=== PATIENT | male | born 2000 | race Caucasian/White ===

== ENCOUNTER 2025-02-08 16:05 | Outpatient (AMB) | payer BC, SELFPAY ==
--- NOTE | 2025-02-08 16:06 | MHC.PC.OV ---
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 Laboratory Chemical Assistant Required: No Accompanied by: Self / Same As Patient Allergies No Known Allergies Allergy (Verified 02/08/25 16:07) Tobacco use date assessed: 02/08/25 Dental Screening Dental Screen Date: 02/08/25 Did you have a dental visit in the last 12 months?: No Did you have a dental problem in the last 6 months where you did not have access to dental care?: No Was dental information given to patient?: No HPI HPI Comments History of Present Illness Details History of Present Illness The patient is a 24-year-old male presenting for a wellness examination and establishment of care with a new physician. He has no complaints at this encounter Review of Systems - General: Denies any current health concerns, reports feeling healthy - Respiratory: Denies smoking or drug use - Gastrointestinal: Reports normal bowel movements, denies abdominal pain - Genitourinary: Reports being sexually active 10-point ROS reviewed and negative except as noted in HPI Past Medical History Health Maintenance - Screening for sexually transmitted infections including chlamydia, gonorrhea, syphilis, HIV, Hepatitis B, and Hepatitis C was discussed. - Comprehensive metabolic panel including liver and kidney function tests, vitamin D, B12, and hemoglobin A1c was planned. - Lipid panel for cholesterol and triglycerides was planned. Physical Exam General: Well-appearing, in no acute distress. Vital signs: Within normal limits. HEENT: Normocephalic, atraumatic. PERRLA, EOMI. Conjunctiva clear, sclera anicteric. Oropharynx clear, mucous membranes moist. TMs intact bilaterally. Ears look good. Neck: Supple, no lymphadenopathy, no thyromegaly, no JVD or carotid bruits. Cardiovascular: RRR, normal S1/S2, no murmurs, rubs, or gallops. Peripheral pulses 2+ and symmetric. No edema. Respiratory: Lungs clear to auscultation bilaterally, no wheezes, rales, or rhonchi. Normal effort. Abdomen: Soft, non-tender, non-distended. Normoactive bowel sounds. No hepatosplenomegaly, no masses. No abdominal pain. MSK: Full range of motion, no joint swelling or deformity. Normal gait. Skin: Warm, dry, intact. No rashes, lesions, or pallor. Nails checked and appear normal. Neuro: Alert and oriented x3. Cranial nerves II-XII intact. Strength 5/5 throughout. Sensation intact. Reflexes 2+ symmetric. Normal coordination and gait. Psych: Appropriate mood and affect. Normal judgment and insight. Plan 1. Preventative Care: Screening for sexually transmitted infections to include HIV hep B hep C we will get a CBC CMP lipid A1c Discussion Notes During the visit, I discussed with the patient the importance of preventative care, including screening for sexually transmitted infections and conducting a comprehensive metabolic panel and lipid panel. We agreed to follow up once the lab results are available. Patient was informed and verbally consented to the use of an ambient scribe for clinic note documentation during this visit. Patient Instructions - Return for blood work tomorrow as the lab is currently closed. - Follow up in one to two weeks to discuss lab results. [facility] Family History (Updated 02/08/25 @ 16:13 by Kiara Lerner MA) Father No problems noted. Mother Thyroid disease Social History (Updated 02/08/25 @ 16:13 by Kiara Lerner MA) Housing: Apartment Alcohol intake: current Alcohol intake frequency: does not drink Patient Tobacco Use Status: Never used Tobacco service: No Current occupational status: employed Cognitive needs: No Hearing needs: No Vision needs: No Questionnaire PHQ-9 Over the last 2 weeks, how often have you been bothered by any of the following problems? 1. Little interest or pleasure in doing things: not at all 2. Feeling down, depressed, or hopeless: not at all 3. Trouble falling or staying asleep, or sleeping too much: not at all 4. Feeling tired or having little energy: not at all 5. Poor appetite or overeating: several days 6. Feeling bad about yourself - or that you are a failure or have let yourself or your family down: not at all 7. Trouble concentrating on things, such as reading the newspaper or watching television: not at all 8. Moving or speaking so slowly that other people could have noticed. Or the opposite - being so fidgety or restless that you have been moving around a lot more than usual: not at all 9. Thoughts that you would be better off or of hurting yourself in some way: not at all Total score: 1 Source: Developed by Drs. Naga Carrillo, Mckayla Kraus, Brent Hernandez and colleagues, with an educational abhi from [employer]. Thrive Questionnaire Date Thrive assessed: 02/07/25 I am a: Patient What is your living situation today?: I have a steady place to live Within the past 12 months, did the food you bought not last and you didn't have the money to get more?: Never true Within the past 12 months, did you worry whether your food would run out before you got money to buy more?: Never true Do you have trouble paying for medicines?: No Do you have trouble getting transportation to medical appointments?: No Do you have trouble paying your heating and electricity bill?: No Do you have trouble taking care of your child, family member or friend?: No Do you have trouble with day-to-day activities such as bathing, preparing meals, shopping, managing finances, etc.?: No Are you currently unemployed and looking for a job?: No Are you interested in more education?: No Please select the resources that you would like help with: None Currently or been in a relationship where the following occur: No concerns reported THRIVE Score: 0 AUDIT C Alcohol Use Questionnaire (AUDIT-C) 1. How often do you have a drink containing alcohol?: Never 3. How often do you have six or more drinks on one occasion?: Never Total Score: 0 LIZZIE-7 AMB Questionnaire LIZZIE-7 Date LIZZIE - 7 assessed: 02/08/25 Feeling nervous, anxious, or on edge: 0 = Not at all Not being able to stop or control worryin = Not at all Worrying too much about different things: 0 = Not at all Trouble relaxin = Not at all Being so restless that it is hard to sit still: 0 = Not at all Becoming easily annoyed or irritable: 0 = Not at all Feeling afraid as if something awful might happen: 0 = Not at all Total LIZZIE-7 score (0-4 normal; 5-9 mild; 10-14 moderate; 15-21 severe): 0 Source: Developed by Drs. Naga Carrillo, Mckayla Kraus, Brent Hernandez and colleagues, with an educational abhi from [employer]. Physical exam (Primary Care) Vital Signs: Last Vital Signs Temp 98.4 F 02/08/25 16:09 Pulse 79 02/08/25 16:09 Resp 16 02/08/25 16:09 BP 96/68 02/08/25 16:09 Pulse Ox 96 02/08/25 16:09 Oxygen Delivery Method Room Air 02/08/25 16:09 BMI result Body Mass Index 27.8 Tobacco/Smoking Status: Tobacco use Status Tobacco use date assessed 02/08/25 02/08/25 16:16 Patient Tobacco Use Status Never used Tobacco 02/08/25 16:16 PHQ-9: PHQ-9 Score PHQ-9: Total score 1 02/08/25 16:16 Thrive Assessment: Date of Thrive Assessment Date Thrive assessed 02/07/25 02/08/25 16:16 Currently or been in a relationship where the following occur: No concerns reported Coding Level of Care Code New Pt Level 3 (43328) Diagnoses Encounter to establish care Z76.89 Encounter for screening, unspecified Z13.9 Counseling, unspecified Z71.9 Screening for hypertension Z13.6 Screening for diabetes mellitus Z13.1 Screening for lipoid disorders Z13.220 Screening for depression Z13.31 Routine screening for STI (sexually transmitted infection) Z11.3 Screening for HIV (human immunodeficiency virus) Z11.4 Assessment & Plan Assessment & Plan (1) Encounter to establish care: Code(s): Z76.89 - Persons encountering health services in other specified circumstances (2) Encounter for screening, unspecified: Code(s): Z13.9 - Encounter for screening, unspecified (3) Counseling, unspecified: Code(s): Z71.9 - Counseling, unspecified (4) Screening for hypertension: Code(s): Z13.6 - Encounter for screening for cardiovascular disorders (5) Screening for diabetes mellitus: Code(s): Z13.1 - Encounter for screening for diabetes mellitus (6) Screening for lipoid disorders: Code(s): Z13.220 - Encounter for screening for lipoid disorders (7) Screening for depression: Code(s): Z13.31 - Encounter for screening for depression (8) Routine screening for STI (sexually transmitted infection): Code(s): Z11.3 - Encounter for screening for infections with a predominantly sexual mode of transmission (9) Screening for HIV (human immunodeficiency virus): Code(s): Z11.4 - Encounter for screening for human immunodeficiency virus [HIV] Plan Orders: Orders Complete Blood Count Auto Diff Today Z13.9 - Encounter for screening, unspecified Hepatitis B Surface Antigen Today Z13.9 - Encounter for screening, unspecified Syphilis Screen Today Z13.9 - Encounter for screening, unspecified UA CC w/rflx Micro + Cult Today Z13.9 - Encounter for screening, unspecified Vitamin B12 and Folate Today Z13.9 - Encounter for screening, unspecified Comprehensive Met. Panel Today Z13.9 - Encounter for screening, unspecified Hemoglobin A1c Today Z13.9 - Encounter for screening, unspecified Hepatitis B Surface Antibody Today Z13.9 - Encounter for screening, unspecified Hepatitis C Antibody Today Z13.9 - Encounter for screening, unspecified HIV Ab/Ag Today Z13.9 - Encounter for screening, unspecified Lipid Panel Today Z13.9 - Encounter for screening, unspecified Vitamin D 1,25 dihydroxy Today Z13.9 - Encounter for screening, unspecified Chlamydia Species Ab Panel Today Z13.9 - Encounter for screening, unspecified CT NG by PCR Urine Today Z13.9 - Encounter for screening, unspecified Medications: New ibuprofen 600 mg PO Q8H PRN 30 tabs 0RF pain
[2025-02-08 16:09] VITALS: BP 96/68; PULSE 79; RESP 16; TEMP 36.9; O2SAT 96; BMI 27.8
--- OUTSIDE RECORDS SUMMARY | 2025-02-08 19:52 | XMS_ITS | Encounter Summary ---
Author Organization [facility] Address [address] [place] [address] Phone Care Team Providers Care Laundry Washer Name Role Phone Rhett Portillo MD Primary Care Provider Encounter Details Date Type Department Care Team (Late st Contact Info) Description 03/22/2014 Documentation [facility] [place] Medicine [address] [place] [address] Family Medicine, Physician [address] [place], [place] [phone] Social History Tobacco Use Types Packs/Day Years Used Date Smoking Tobacco: Never Assessed Sex and Gender Information Value Date Recorded Sex Assigned at Male 07/26/2019 1:42 PM EDT Legal Sex Male 5:15 PM EDT Gender Identity Male 07/26/2019 1:42 PM EDT Sexual Orientation Straight 07/26/2019 1: 42 PM EDT documented as of this encounter Plan of Treatment Not on file documented as of this encounter Visit Diagnoses Not on filedocumented in this encounter Care Teams Laundry Washer Relationship Specialty Start Date End Date Rhett Portillo MD [address] [facility] [place] [address] PCP - General Pediatrics 05/25/19 05/05/23 documented as of this encounter
--- OUTSIDE RECORDS SUMMARY | 2025-02-08 19:52 | XMS_ITS | Encounter Summary ---
Author Organization [facility] Address [address] [place] [address] Phone Care Team Providers Care Painter Structural Steel Name Role Phone Rhett Portillo MD Primary Care Provider [phone] Encounter Details Date Type Department Care Team (Late st Contact Info) Description 04/23/2016 [place] [facility] [place] [address] [place] [address] Family Medicine, Physician [address] [place], [place] [phone] Social History Tobacco Use Types Packs/Day Years Used Date Smoking Tobacco: Never Comments:Never smoker Sex and Gender Information Value Date Recorded Sex Assigned at Male 07/26/2019 1:42 PM EDT Legal Sex Male 5:15 PM EDT Gender Identity Male 07/26/2019 1:42 PM EDT Sexual Orientation Straight 07/26/2019 1: 42 PM EDT documented as of this encounter Plan of Treatment Not on file documented as of this encounter Visit Diagnoses Not on filedocumented in this encounter Care Teams Painter Structural Steel Relationship Specialty Start Date End Date Rhett Portillo MD [address] [place] [address] [place] [address] PCP - General Pediatrics 05/25/19 05/05/23 documented as of this encounter
--- OUTSIDE RECORDS SUMMARY | 2025-02-08 19:52 | XMS_ITS | Encounter Summary ---
Author Organization [facility] Address [address] [place] [address] Phone Care Team Providers Care Manager Oracle Name Role Phone Rhett Portillo MD Primary Care Provider [phone] Encounter Details Date Type Department Care Team (Late st Contact Info) Description 04/30/2014 Documentation [facility] [place] Family Medicine [address] [place] [address] Family Medicine, Physician [address] [place], [place] [phone] Social History Tobacco Use Types Packs/Day Years [...] on filedocumented in this encounter Care Teams Manager Oracle Relationship Specialty Start Date End Date Rhett Portillo MD [address] [facility] [place] [address] PCP - General Pediatrics 05/25/19 05/05/23 documented as of this encounter
--- OUTSIDE RECORDS SUMMARY | 2025-02-08 19:52 | XMS_ITS | Encounter Summary ---
Author Organization [facility] Address [address] [place] [address] Phone Care Team Providers Care Negative Retoucher Name Role Phone Rhett Portillo MD Primary Care Provider Encounter Details Date Type Department Care Team (Late st Contact Info) Description 02/18/2011 Documentation [facility] Family Medicine [address] [place] [address] Family Medicine, Physician [address] [place], [place] [phone] Social History Tobacco Use Types Packs/Day Years [...] on filedocumented in this encounter Care Teams Negative Retoucher Relationship Specialty Start Date End Date Rhett Portillo MD 150 [facility] [place] [address] PCP - General Pediatrics 05/25/19 05/05/23 documented as of this encounter
--- OUTSIDE RECORDS SUMMARY | 2025-02-08 19:52 | XMS_ITS | Encounter Summary ---
Author Organization [facility] Address [address] [place] [address] Phone Care Team Providers Care Heavy Equipment Technician Name Role Phone Rhett Portillo MD Primary Care Provider [phone] Encounter Details Date Type Department Care Team (Late st Contact Info) Description 04/23/2016 Documentation [facility] [place] Family Medicine [address] [place] [address] Family Medicine, Physician [address] [place], [place] [phone] Social History Tobacco Use Types Packs/Day Years [...] on filedocumented in this encounter Care Teams Heavy Equipment Technician Relationship Specialty Start Date End Date Rhett Portillo MD [address] [place] [address] [place] [address] PCP - General Pediatrics 05/25/19 05/05/23 documented as of this encounter
--- OUTSIDE RECORDS SUMMARY | 2025-02-08 19:52 | XMS_ITS | Encounter Summary ---
Author Organization [facility] Address [address] [place] [address] Phone Care Team Providers Care Wind Turbine Sheet Metal Worker Name Role Phone Rhett Portillo MD Primary Care Provider [phone] Encounter Details Date Type Department Care Team (Late st Contact Info) Description 02/12/2011 Documentation [facility] [place] [address] [place] [address] Family Medicine, Physician [address] [place], [place] [phone] Social History Tobacco Use Types Packs/Day Years [...] on filedocumented in this encounter Care Teams Wind Turbine Sheet Metal Worker Relationship Specialty Start Date End Date Rhett Portillo MD [address] [facility] [place] [address] PCP - General Pediatrics 05/25/19 05/05/23 documented as of this encounter
--- OUTSIDE RECORDS SUMMARY | 2025-02-08 19:52 | XMS_ITS | Encounter Summary ---
Author Organization [facility] Address [address] [place] [address] Phone Care Team Providers Care Detective Homicide Squad Name Role Phone Rhett Portillo MD Primary Care Provider [phone] Encounter Details Date Type Department Care Team (Late st Contact Info) Description 05/29/2015 Documentation [facility] [place] [address] [place] [address] Family Medicine, Physician [address] [place], [place] [phone] Social History Tobacco Use Types Packs/Day Years [...] on filedocumented in this encounter Care Teams Detective Homicide Squad Relationship Specialty Start Date End Date Rhett Portillo MD [address] [facility] [place] [address] PCP - General Pediatrics 05/25/19 05/05/23 documented as of this encounter
--- OUTSIDE RECORDS SUMMARY | 2025-02-08 19:52 | XMS_ITS | Encounter Summary ---
Author Organization [facility] Address [address] [place] [address] Phone Care Team Providers Care Waiter/Waitress Bar Name Role Phone Rhett Portillo MD Primary Care Provider [phone] Encounter Details Date Type Department Care Team (Late st Contact Info) Description 03/22/2014 Documentation [facility] [place] [address] [place] [address] Family Medicine, Physician [address] [place], [place] [phone] Social History Tobacco Use Types Packs/Day Years [...] on filedocumented in this encounter Care Teams Waiter/Waitress Bar Relationship Specialty Start Date End Date Rhett Portillo MD 150 [facility] [place] [address] PCP - General Pediatrics 05/25/19 05/05/23 documented as of this encounter
--- OUTSIDE RECORDS SUMMARY | 2025-02-08 19:52 | XMS_ITS | Encounter Summary ---
Author Organization [facility] Address [address] [place] [address] Phone Care Team Providers Care Professor Of Management Name Role Phone Rhett Portillo MD Primary Care Provider [phone] Encounter Details Date Type Department Care Team (Late st Contact Info) Description 03/16/2012 Documentation [facility] [place] [address] [place] [address] Family Medicine, Physician [address] [place], [place] [phone] Social History Tobacco Use Types Packs/Day Years [...] on filedocumented in this encounter Care Teams Professor Of Management Relationship Specialty Start Date End Date Rhett Portillo MD 150 [facility] [place] [address] PCP - General Pediatrics 05/25/19 05/05/23 documented as of this encounter
--- OUTSIDE RECORDS SUMMARY | 2025-02-08 19:52 | XMS_ITS | Encounter Summary ---
Author Organization [facility] Address [address] [place] [address] Phone Care Team Providers Care Jig Mill Operator Name Role Phone Rhett Portillo MD Primary Care Provider [phone] Encounter Details Date Type Department Care Team (Late st Contact Info) Description 03/21/2013 Documentation [facility] [place] [address] [place] [address] Family Medicine, Physician [address] [place], [place] [phone] Social History Tobacco Use Types Packs/Day Years [...] on filedocumented in this encounter Care Teams Jig Mill Operator Relationship Specialty Start Date End Date Rhett Portillo MD [address] [facility] [place] [address] PCP - General Pediatrics 05/25/19 05/05/23 documented as of this encounter
--- OUTSIDE RECORDS SUMMARY | 2025-02-08 19:52 | XMS_ITS | Encounter Summary ---
Author Organization [facility] Address [address] [place] [address] Phone Care Team Providers Care Knife Changer Name Role Phone Rhett Portillo MD Primary Care Provider Encounter Details Date Type Department Care Team (Late st Contact Info) Description 03/26/2015 Documentation [facility] [place] Family Medicine [address] [place] [address] Family Medicine, Physician [address] [place], [place] [phone] Social History Tobacco Use Types Packs/Day Years [...] on filedocumented in this encounter Care Teams Knife Changer Relationship Specialty Start Date End Date Rhett Portillo MD [address] [facility] [place] [address] PCP - General Pediatrics 05/25/19 05/05/23 documented as of this encounter
--- OUTSIDE RECORDS SUMMARY | 2025-02-08 19:52 | XMS_ITS | Encounter Summary ---
Author Organization [facility] Address [address] [place] [address] Phone Care Team Providers Care Run Boat Operator Name Role Phone Rhett Portlilo MD Primary Care Provider [phone] Encounter Details Date Type Department Care Team (Late st Contact Info) Description 04/23/2016 [place] [facility] [place] [address] [place] [address] Family Medicine, Physician [address] [place], [place] [phone] Social History Tobacco Use Types Packs/Day Years [...] on filedocumented in this encounter Care Teams Run Boat Operator Relationship Specialty Start Date End Date Rhett Portillo MD [address] [place] [address] [place] [address] PCP - General Pediatrics 05/25/19 05/05/23 documented as of this encounter
--- OUTSIDE RECORDS SUMMARY | 2025-02-08 19:52 | XMS_ITS | Encounter Summary ---
Author Organization [facility] Address [address] [place] [address] Phone Care Team Providers Care Water Main Installer Helper Name Role Phone Rhett Portillo MD Primary Care Provider [phone] Encounter Details Date Type Department Care Team (Late st Contact Info) Description 03/21/2013 Documentation [facility] [place] Family Medicine [address] [place] [address] Family Medicine, Physician [address] [place], [place] [phone] Social History Tobacco Use Types Packs/Day Years [...] on filedocumented in this encounter Care Teams Water Main Installer Helper Relationship Specialty Start Date End Date Rhett Portillo MD 150 [facility] [place] [address] PCP - General Pediatrics 05/25/19 05/05/23 documented as of this encounter
--- OUTSIDE RECORDS SUMMARY | 2025-02-08 19:52 | XMS_ITS | Encounter Summary ---
Author Organization [facility] Address [address] [place] [address] Phone Care Team Providers Care Shipbuilding Draftsperson Name Role Phone Rhett Portillo MD Primary Care Provider [phone] Encounter Details Date Type Department Care Team (Late st Contact Info) Description 04/30/2014 Documentation [facility] [place] Family Medicine [address] [place] [address] Family Medicine, Physician [address] [place], [place] [phone] Social History Tobacco Use Types Packs/Day Years [...] on filedocumented in this encounter Care Teams Shipbuilding Draftsperson Relationship Specialty Start Date End Date Rhett Portillo MD 150 [facility] [place] [address] PCP - General Pediatrics 05/25/19 05/05/23 documented as of this encounter
--- OUTSIDE RECORDS SUMMARY | 2025-02-08 19:52 | XMS_ITS | Encounter Summary ---
Author Organization [facility] Address [address] [place] [address] Phone Care Team Providers Care Plush Finisher Name Role Phone hRett Portillo MD Primary Care Provider [phone] Encounter Details Date Type Department Care Team (Late st Contact Info) Description 02/18/2011 Documentation [facility] [place] Family Medicine [address] [place] [address] Family Medicine, Physician [address] [place], [place] [phone] Social History Tobacco Use Types Packs/Day Years [...] on filedocumented in this encounter Care Teams Plush Finisher Relationship Specialty Start Date End Date Rhett Portillo MD 150 [facility] [place] [address] PCP - General Pediatrics 05/25/19 05/05/23 documented as of this encounter
--- OUTSIDE RECORDS SUMMARY | 2025-02-08 19:52 | XMS_ITS | Encounter Summary ---
Author Organization [facility] Address [address] [place] [address] Phone Care Team Providers Care Director Digital Communications Name Role Phone Rhett Portillo MD Primary Care Provider [phone] Encounter Details Date Type Department Care Team (Late st Contact Info) Description 04/23/[address] [facility] [place] Family Medicine [address] [place] [address] Family Medicine, Physician [address] [place], [place] [phone] Social History Tobacco Use Types Packs/Day Years [...] on filedocumented in this encounter Care Teams Director Digital Communications Relationship Specialty Start Date End Date Rhett Portillo MD [address] [place] [address] [place] Tellez [address] PCP - General Pediatrics 05/25/19 05/05/23 documented as of this encounter
--- OUTSIDE RECORDS SUMMARY | 2025-02-08 19:52 | XMS_ITS | Encounter Summary ---
Author Organization [facility] Address [address] [place] [address] Phone Care Team Providers Care Ict Quality Assurance Engineer Name Role Phone Rhett Portillo MD Primary Care Provider [phone] Encounter Details Date Type Department Care Team (Late st Contact Info) Description 04/18/2015 Documentation [facility] [place] [address] [place] [address] Family Medicine, Physician [address] [place], [place] [phone] Social History Tobacco Use Types Packs/Day Years [...] on filedocumented in this encounter Care Teams Ict Quality Assurance Engineer Relationship Specialty Start Date End Date Rhett Portillo MD 150 [facility] [place] Tellez [address] PCP - General Pediatrics 05/25/19 05/05/23 documented as of this encounter
--- OUTSIDE RECORDS SUMMARY | 2025-02-08 19:52 | XMS_ITS | Clinical Summary ---
Author Organization [facility] Address [address] [place] [address] Phone Care Team Providers Care Silk Winding Machine Operator Name Role Phone Unavailable Primary Care Provider Unavailabl e Allergies No known active allergies Medications ibuprofen 600 MG tablet Take 600 mg by mouth every 6 (six) hours as needed. for pain 0 08/19/2017 Active Active Problems No known active problems Immunizations Immunization Administration Dates Next Due DTaP 5 08/31/2006, 4,02/21/2003,12/13,2002 H1N1 04/09/2009 HPV Vaccine 9 Valent 03/23/2015 HPV, Quadrivalent 04/27/2014,03/21/2014 Hep A, ped/adol 03/23/2015,03/21/2014 Hep B, ped/adol 06/21/2003,02/21/2003,2002 Hib (HbOC) 11/22/2003 Hib (PRP-T) 02/21/2003,2002,2002 IPV 08/31/2006, 4,2002,10/12 Influenza Split 03/20/2013, 2,02/17/2011,03/27 Influenza, injectable, MDCK, preservative free, quadrivalent 04/22/2016 Influenza, injectable, quadrivalent 04/17/2015,1 05/21/2013 Influenza, injectable, quadr ivalent, preservative free 07/26/2019,05/06/2018,04/26/2017 Influenza, injectable, trivalent 03/25/2004 MMR 09/04/2003 MMRV 08/31/2006 Meningococcal Conj (Menactra) MCV4P 07/26/2019,1 05/21/2013 Pneumococcal Conjugate 03/19/2004,2002,2002,10/12 Tdap 03/21/2014 Varicella 09/04/2003 Family History Medical History Relation Name Comments No Known Problems Father Олег No Known Problems Half-Brother 1 Kevin No Known Problems Half-Brother 2 J J No Known Problems Half-Sister Amanda Asthma Mother demetrius Hypothyroidism Mother demetrius Relation Name Status Comments Father Олег Alive Half-Brother 1 Kevin Alive Half-Brother 2 J J Alive Half-Sister Amanda Alive Mother demetrius Alive Other Family history of Diabetes mellitus, Family history of Seizure disorder, No family history of *Heart Disease, Family history of Hyperlipidemia, Family history of ADD/ADHD, No family history of Developmental dislocation of hip, Family history of Cancer, pr Social History Tobacco Use Types Packs/Day Years Used Date Smoking Tobacco: Never Smokeless Tobacco: Never Tobacco Cessation:Counseling Given: Yes Comments:Never smoker Alcohol Use Standard Drinks/Week Comments No 0 (1 standard drink = 0.6 oz pur e alcohol) Hunger/Food Answer Date Recorded In the last 12 months, did y ou or your family ever eat less than you felt you should because there wasn't enough money for food? No 07/26/2019 Stable Housing Answer Date Recorded Are you worried that in the next 2 months you may not have stable housing? No 07/26/2019 Transportation Concerns Answer Date Rec orded In the last 12 months, have you or your family ever had to go without healthcare because you didn't have a way to get there? No 07/26/2019 Hazards in Home Answer Date Recorded Think about the place you li ve. Do you have problems with any of the following? Pests (mice or roaches), mold, no/not working smoke detectors, water leaks, no window guards. No 2019 Financing Utilities Answer Date Recorde d In the last 12 months, has t he electric, gas, oil, or water company threatened to shut off your services in your home? No 07/26/2019 Safety at Home Answer Date Recorded Are you or your family worried about feeling saf e in your home? No 07/26/2019 Outside Support Answer Date Recorded Do you feel that you need mo re support from other people or programs to help you care for yourself or your family? No 07/26/2019 Understanding Health Concerns Answer Da te Recorded Do you need help understandi ng your or your child's healthcare needs (diagnosis, medications, plan, etc.)? No 07/26/2019 Financing Health Concerns Answer Date R ecorded In the last 12 months, was t here a time when your child needed to see a doctor or get medications or supplies but could not because of cost? No 07/26/2019 Missing School or Work Answer Date Jac rded Did you or your child miss s chool or work because of a health problem that could have been avoided? No 07/26/2019 Sex and Gender Information Value Date Recorded Sex Assigned at Male 07/26/2019 1:42 PM EDT Legal Sex Male 5:15 PM EDT Gender Identity Male 07/26/2019 1:42 PM EDT Sexual Orientation Straight 07/26/2019 1: 42 PM EDT Last Filed Vital Signs Vital Sign Reading Time Taken Comments Blood Pressure 113/60 07/26/2019 1:22 PM EDT Pulse 69 07/26/2019 1:22 PM EDT Temperature 36.9 C (98.4 F) 07/26/2019 1:22 PM EDT Respiratory Rate - - Oxygen Saturation - - Inhaled Oxygen Concentration - - Weight 79.6 kg (175 lb 8 oz) 07/26/2019 1:22 PM EDT Height 168.3 cm (5' 6.25 ) 07/26/2019 1:22 PM ED T Body Mass Index 28.11 07/26/2019 1:22 PM EDT Plan of Treatment Health Maintenance Due Date Last Done Comments Men B Vaccine (1 of 2 - Standard) 2018 DTaP,Tdap,and Td Vaccines (7 - Td or Tdap) 03/21/2024 03/21/2014, 08/31/2006, 03/19/2004, Additional history exists Influenza Vaccines (#1) 2024 07/26/19 20, 05/06/2018, 04/26/2017, Additional history exists COVID-19 Vaccine (2023-2 5 season) 2025 Hepatitis B Vaccines Completed 06/21/2003, 02/21/2003, 2002 HIB Vaccines Completed 11/22/2003, 12/2002, 2002, Additional history exists Pneumococcal Vaccine Completed 03/19/2004, 02/21/2003, 2002, Additional history exists IPV Vaccines Completed 08/31/2006, 0209/2003, 2002, Additional history exists MMR Vaccines Completed 08/31/2006, 09/04/2003 Varicella Vaccines Completed 08/31/2006, 09/04/2003 HPV Vaccines Completed 03/23/2015, 04/16, 03/21/2014 Hepatitis A Vaccines Completed 03/23/2015, 03/21/20 14 Meningococcal Vaccine Completed 07/26/2019, 014
--- OUTSIDE RECORDS SUMMARY | 2025-02-08 19:52 | XMS_ITS | Encounter Summary ---
Author Organization [facility] Address [address] [place] [address] Phone Care Team Providers Care Machine Sole Leveler Name Role Phone Rhett Portillo MD Primary Care Provider [phone] Encounter Details Date Type Department Care Team (Late st Contact Info) Description 09/05/2013 Documentation [facility] [place] Family Medicine [address] [place] [address] Family Medicine, Physician [address] [place], [place] [phone] Social History Tobacco Use Types Packs/Day Years [...] on filedocumented in this encounter Care Teams Machine Sole Leveler Relationship Specialty Start Date End Date Rhett Portillo MD [address] [facility] [place] [address] PCP - General Pediatrics 05/25/19 05/05/23 documented as of this encounter
--- OUTSIDE RECORDS SUMMARY | 2025-02-08 19:52 | XMS_ITS | Encounter Summary ---
Author Organization [facility] Address [address] [place] [address] Phone Care Team Providers Care Finishing Wire Sawyer Name Role Phone Rhett Portillo MD Primary Care Provider [phone] Encounter Details Date Type Department Care Team (Late st Contact Info) Description 08/04/2012 Documentation [facility] [place] [address] [place] [address] Family Medicine, Physician [address] [place], [place] [phone] Social History Tobacco Use Types Packs/Day Years [...] on filedocumented in this encounter Care Teams Finishing Wire Sawyer Relationship Specialty Start Date End Date Rhett Portillo MD 150 [facility] [place] [address] PCP - General Pediatrics 05/25/19 05/05/23 documented as of this encounter
--- OUTSIDE RECORDS SUMMARY | 2025-02-08 19:52 | XMS_ITS | Encounter Summary ---
Author Organization [facility] Address [address] [place] [address] Phone Care Team Providers Care Credit Rating Checker Name Role Phone Rhett Portillo MD Primary Care Provider [phone] Encounter Details Date Type Department Care Team (Late st Contact Info) Description 12/31/2016 Conversion Encounter [facility] [place] [address] [place] [address] Social History Tobacco Use Types Packs/Day Years [...] on filedocumented in this encounter Care Teams Credit Rating Checker Relationship Specialty Start Date End Date Rhett Portillo MD 150 [place] [address] PCP - General Pediatrics 05/25/19 05/05/23 documented as of this encounter
--- OUTSIDE RECORDS SUMMARY | 2025-02-08 19:52 | XMS_ITS | Encounter Summary ---
Author Organization [facility] Address [address] [place] [address] Phone Care Team Providers Care Filling Station Equipment Mechanic Name Role Phone Rhett Portillo MD Primary Care Provider [phone] Encounter Details Date Type Department Care Team (Late st Contact Info) Description 02/18/2011 Documentation [facility] [place] Family Medicine [address] [place] [address] Family Medicine, Physician [address] [place], [place] [phone] Social History Tobacco Use Types Packs/Day Years [...] on filedocumented in this encounter Care Teams Filling Station Equipment Mechanic Relationship Specialty Start Date End Date Rhett Portillo MD [address] [facility] [place]ellez [address] PCP - General Pediatrics 05/25/19 05/05/23 documented as of this encounter
== END 2025-02-08 16:25 | disposition home or self-care (01) ==
LOC: HO.HMCFMS 16:06
PROVIDERS: PCP Pediatrics; Visit Provider Student in an Organized Health Care Education/Training Program
DX: Z00.00 Encounter for general adult medical examination without abnormal findings (principal)

== ENCOUNTER 2025-02-09 08:37 | Outpatient (REF) | payer BC, SELFPAY ==
--- OUTSIDE RECORDS SUMMARY | 2025-02-09 09:00 | XMS_ITS | Encounter Summary ---
Author Organization [facility] Address [address] [place] [address] Phone Care Team Providers Care Identification Technician Name Role Phone Rhett Portillo MD Primary Care Provider [phone] Encounter Details Date Type Department Care Team (Late st Contact Info) Description 04/18/2015 Documentation [facility] [place] Family Medicine [address] [place] [address] Family Medicine, Physician [address] [place], [place] [phone] Social History Tobacco Use Types Packs/Day Years [...] on filedocumented in this encounter Care Teams Identification Technician Relationship Specialty Start Date End Date Rhett Portillo MD 150 [facility] [place]ellez [address] PCP - General Pediatrics 05/25/19 05/05/23 documented as of this encounter
--- OUTSIDE RECORDS SUMMARY | 2025-02-09 09:00 | XMS_ITS | Encounter Summary ---
Author Organization [facility] Address [address] [place] [address] Phone Care Team Providers Care Senior Librarian Name Role Phone Rhett Portillo MD Primary Care Provider [phone] Encounter Details Date Type Department Care Team (Late st Contact Info) Description 03/21/2013 Documentation [facility] [place] Family Medicine [address] [place] [address] Family Medicine, Physician [address] [place], [place] [phone] Social History Tobacco Use Types Packs/Day Years [...] on filedocumented in this encounter Care Teams Senior Librarian Relationship Specialty Start Date End Date Rhett Portillo MD 150 [facility] [place] Tellez [address] PCP - General Pediatrics 05/25/19 05/05/23 documented as of this encounter
--- OUTSIDE RECORDS SUMMARY | 2025-02-09 09:00 | XMS_ITS | Encounter Summary ---
Author Organization [facility] Address [address] [place] [address] Phone Care Team Providers Care Dyno Technician Name Role Phone Rhett Portillo MD Primary Care Provider [phone] Encounter Details Date Type Department Care Team (Late st Contact Info) Description 02/12/2011 Documentation [facility] [place] Family Medicine [address] [place] [address] Family Medicine, Physician [address] [place], [place] [phone] Social History Tobacco Use Types Packs/Day Years [...] on filedocumented in this encounter Care Teams Dyno Technician Relationship Specialty Start Date End Date Rhett Portillo MD 150 [facility] [place] Tellez [address] PCP - General Pediatrics 05/25/19 05/05/23 documented as of this encounter
--- OUTSIDE RECORDS SUMMARY | 2025-02-09 09:00 | XMS_ITS | Encounter Summary ---
Author Organization [facility] Address [address] [place] [address] Phone Care Team Providers Care Electrical Helper Name Role Phone Rhett Portillo MD Primary Care Provider Encounter Details Date Type Department Care Team (Late st Contact Info) Description 03/21/2013 Documentation [facility] [place] Family Medicine [address] [place] [address] Family Medicine, Physician [address] [place], [place] [phone] Social History Tobacco Use Types Packs/Day Years [...] on filedocumented in this encounter Care Teams Electrical Helper Relationship Specialty Start Date End Date Rhett Portillo MD 150 [facility] [place] Tellez [address] PCP - General Pediatrics 05/25/19 05/05/23 documented as of this encounter
--- OUTSIDE RECORDS SUMMARY | 2025-02-09 09:00 | XMS_ITS | Encounter Summary ---
Author Organization [facility] Address [address] [place] [address] Phone Care Team Providers Care Spike Driver Name Role Phone Rhett Portillo MD Primary Care Provider [phone] Encounter Details Date Type Department Care Team (Late st Contact Info) Description 04/30/2014 Documentation [facility] [place] Family Medicine [address] [place] [address] Family Medicine, Physician [address] [place], [place] [phone] Social History Tobacco Use Types Packs/Day Years [...] on filedocumented in this encounter Care Teams Spike Driver Relationship Specialty Start Date End Date Rhett Portillo MD 150 [facility] [place] Tellez [address] PCP - General Pediatrics 05/25/19 05/05/23 documented as of this encounter
--- OUTSIDE RECORDS SUMMARY | 2025-02-09 09:00 | XMS_ITS | Encounter Summary ---
Author Organization [facility] Address [address] [place] [address] Phone Care Team Providers Care Courtroom Clerk Name Role Phone Rhett Portillo MD Primary Care Provider [phone] Encounter Details Date Type Department Care Team (Late st Contact Info) Description 02/18/2011 Documentation [facility] [place] Family Medicine [address] [place] [address] Family Medicine, Physician [address] [place], [place] [phone] Social History Tobacco Use Types Packs/Day Years [...] on filedocumented in this encounter Care Teams Courtroom Clerk Relationship Specialty Start Date End Date Rhett Portillo MD 150 [facility] [place] Tellez [address] PCP - General Pediatrics 05/25/19 05/05/23 documented as of this encounter
--- OUTSIDE RECORDS SUMMARY | 2025-02-09 09:00 | XMS_ITS | Encounter Summary ---
Author Organization [facility] Address [address] [place] [address] Phone Care Team Providers Care Team Leader/Research Psychologist Name Role Phone Rhett Portillo MD Primary Care Provider [phone] Encounter Details Date Type Department Care Team (Late st Contact Info) Description 09/05/2013 Documentation [facility] [place] Family Medicine [address] [place] [address] Family Medicine, Physician [address] [place], [place] [phone] Social History Tobacco Use Types Packs/Day Years [...] on filedocumented in this encounter Care Teams Team Leader/Research Psychologist Relationship Specialty Start Date End Date Rhett Portillo MD 150 [facility] [place] Tellez [address] PCP - General Pediatrics 05/25/19 05/05/23 documented as of this encounter
--- OUTSIDE RECORDS SUMMARY | 2025-02-09 09:00 | XMS_ITS | Encounter Summary ---
Author Organization [facility] Address [address] [place] [address] Phone Care Team Providers Care Glass Cylinder Flanger Name Role Phone Rhett Portillo MD Primary Care Provider [phone] Encounter Details Date Type Department Care Team (Late st Contact Info) Description 08/04/2012 Documentation [facility] [place] Family Medicine [address] [place] [address] Family Medicine, Physician [address] [place], [place] [phone] Social History Tobacco Use Types Packs/Day Years [...] on filedocumented in this encounter Care Teams Glass Cylinder Flanger Relationship Specialty Start Date End Date Rhett Portillo MD 150 [facility] [place] Tellez [address] PCP - General Pediatrics 05/25/19 05/05/23 documented as of this encounter
--- OUTSIDE RECORDS SUMMARY | 2025-02-09 09:00 | XMS_ITS | Clinical Summary ---
Author Organization [facility] Address [address] [place] [address] Phone Care Team Providers Care Crocheter Hand Name Role Phone Unavailable Primary Care Provider [...]
--- OUTSIDE RECORDS SUMMARY | 2025-02-09 09:00 | XMS_ITS | Encounter Summary ---
Author Organization [facility] Address [address] [place] [address] Phone Care Team Providers Care Distributor Operator Name Role Phone Rhett Portillo MD Primary Care Provider [phone] Encounter Details Date Type Department Care Team (Late st Contact Info) Description 04/23/2016 Documentation [facility] [place] Family Medicine [address] [place] [address] Family Medicine, Physician [address] [place], [place] [phone] Social History Tobacco Use Types Packs/Day Years [...] on filedocumented in this encounter Care Teams Distributor Operator Relationship Specialty Start Date End Date Rhett Portillo MD [address] [place] [address] [place] Tellez [address] PCP - General Pediatrics 05/25/19 05/05/23 documented as of this encounter
--- OUTSIDE RECORDS SUMMARY | 2025-02-09 09:00 | XMS_ITS | Encounter Summary ---
Author Organization [facility] Address [address] [place] [address] Phone Care Team Providers Care Oil Field Laborer Name Role Phone Rhett Portillo MD Primary Care Provider [phone] Encounter Details Date Type Department Care Team (Late st Contact Info) Description 05/29/2015 Documentation [facility] [place] Family Medicine [address] [place] [address] Family Medicine, Physician [address] [place], [place] [phone] Social History Tobacco Use Types Packs/Day Years [...] on filedocumented in this encounter Care Teams Oil Field Laborer Relationship Specialty Start Date End Date Rhett Portillo MD 150 [facility] [place] Tellez [address] PCP - General Pediatrics 05/25/19 05/05/23 documented as of this encounter
--- OUTSIDE RECORDS SUMMARY | 2025-02-09 09:00 | XMS_ITS | Encounter Summary ---
Author Organization [facility] Address [address] [place] [address] Phone Care Team Providers Care Supervisor Trust Accounts Name Role Phone Rhett Portillo MD Primary Care Provider [phone] Encounter Details Date Type Department Care Team (Late st Contact Info) Description 03/22/2014 Documentation [facility] [place] Family Medicine [address] [place] [address] Family Medicine, Physician [address] [place], [place] [phone] Social History Tobacco Use Types Packs/Day Years [...] on filedocumented in this encounter Care Teams Supervisor Trust Accounts Relationship Specialty Start Date End Date Rhett Portillo MD 150 [facility] AL[place] Tellez [address] PCP - General Pediatrics 05/25/19 05/05/23 documented as of this encounter
--- OUTSIDE RECORDS SUMMARY | 2025-02-09 09:00 | XMS_ITS | Encounter Summary ---
Author Organization [facility] Address [address] [place] [address] Phone Care Team Providers Care Floor And Wall Applier Liquid Name Role Phone Rhett Portillo MD Primary Care Provider Encounter Details Date Type Department Care Team (Late st Contact Info) Description 04/23/2016 [place]ation [facility] [place] [address] [place] [address] Family Medicine, Physician [address] [place], [place] [phone] Social History Tobacco Use Types Packs/Day Years [...] on filedocumented in this encounter Care Teams Floor And Wall Applier Liquid Relationship Specialty Start Date End Date Rhett Portillo MD [address] [place] [address] [place] Tellez [address] PCP - General Pediatrics 05/25/19 05/05/23 documented as of this encounter
--- OUTSIDE RECORDS SUMMARY | 2025-02-09 09:00 | XMS_ITS | Encounter Summary ---
Author Organization [facility] Address [address] [place] [address] Phone Care Team Providers Care Sales Administration Specialist Name Role Phone Rhett Portillo MD Primary Care Provider [phone] Encounter Details Date Type Department Care Team (Late st Contact Info) Description 04/30/2014 Documentation [facility] [place] [address] [place] [address] Family Medicine, Physician [address] [place], [place] [phone] Social History Tobacco Use Types Packs/Day Years [...] on filedocumented in this encounter Care Teams Sales Administration Specialist Relationship Specialty Start Date End Date Rhett Portillo MD 150 [facility] [place]z [address] PCP - General Pediatrics 05/25/19 05/05/23 documented as of this encounter
--- OUTSIDE RECORDS SUMMARY | 2025-02-09 09:00 | XMS_ITS | Encounter Summary ---
Author Organization [facility] Address [address] [place] [address] Phone Care Team Providers Care Electronic Resources Librarian Name Role Phone Rhett Portillo MD Primary Care Provider [phone] Encounter Details Date Type Department Care Team (Late st Contact Info) Description 03/22/2014 Documentation [facility] [place] [address] [place] [address] Family Medicine, Physician [address] [place], [place] [phone] Social History Tobacco Use Types Packs/Day Years [...] on filedocumented in this encounter Care Teams Electronic Resources Librarian Relationship Specialty Start Date End Date Rhett Portillo MD [address] [facility] [place] [address] PCP - General Pediatrics 05/25/19 05/05/23 documented as of this encounter
--- OUTSIDE RECORDS SUMMARY | 2025-02-09 09:00 | XMS_ITS | Encounter Summary ---
Author Organization [facility] Address [address] [place] [address] Phone Care Team Providers Care Formulator Name Role Phone Rhett Portillo MD Primary Care Provider Encounter Details Date Type Department Care Team (Late st Contact Info) Description 03/16/2012 Documentation [facility] [place] Medicine [address] [place] [address] Family Medicine, Physician [address] [place], [place] [phone] Social History Tobacco Use Types Packs/Day Years [...] on filedocumented in this encounter Care Teams Formulator Relationship Specialty Start Date End Date Rhett Portillo MD 150 [facility] [place] [address] PCP - General Pediatrics 05/25/19 05/05/23 documented as of this encounter
--- OUTSIDE RECORDS SUMMARY | 2025-02-09 09:00 | XMS_ITS | Encounter Summary ---
Author Organization [facility] Address [address] [place] [address] Phone Care Team Providers Care Shredded Filler Machine Wrapper Layer Name Role Phone Rhett Portillo MD Primary Care Provider [phone] Encounter Details Date Type Department Care Team (Late st Contact Info) Description 12/31/2016 Conversion Encounter [facility] [place] [address] [place] [address] Social History Tobacco Use Types Packs/Day Years [...] on filedocumented in this encounter Care Teams Shredded Filler Machine Wrapper Layer Relationship Specialty Start Date End Date Rhett Portillo MD [address] [place] [address] PCP - General Pediatrics 05/25/19 05/05/23 documented as of this encounter
--- OUTSIDE RECORDS SUMMARY | 2025-02-09 09:00 | XMS_ITS | Encounter Summary ---
Author Organization [facility] Address [address] [place] [address] Phone Care Team Providers Care Spooler Rubber Strand Name Role Phone Rhett Portillo MD Primary Care Provider [phone] Encounter Details Date Type Department Care Team (Late st Contact Info) Description 04/23/2016 Documentation [facility] [place] Medicine [address] [place] [address] Family Medicine, Physician [address] [place], [place] [phone] Social History Tobacco Use Types Packs/Day Years [...] on filedocumented in this encounter Care Teams Spooler Rubber Strand Relationship Specialty Start Date End Date Rhett Portillo MD [address] [place] [address] [place] [address] PCP - General Pediatrics 05/25/19 05/05/23 documented as of this encounter
--- OUTSIDE RECORDS SUMMARY | 2025-02-09 09:00 | XMS_ITS | Encounter Summary ---
Author Organization [facility] Address [address] [place] [address] Phone Care Team Providers Care Molded Frames Assembler Name Role Phone Rhett Portillo MD Primary Care Provider [phone] Encounter Details Date Type Department Care Team (Late st Contact Info) Description 04/23/2016 Documentation [facility] [place] [address] [place] [address] Family Medicine, Physician [address] [place], [place] [phone] Social History Tobacco Use Types Packs/Day Years [...] on filedocumented in this encounter Care Teams Molded Frames Assembler Relationship Specialty Start Date End Date Rhett Portillo MD [address] [place] [address] [place] [address] PCP - General Pediatrics 05/25/19 05/05/23 documented as of this encounter
--- OUTSIDE RECORDS SUMMARY | 2025-02-09 09:00 | XMS_ITS | Encounter Summary ---
Author Organization [facility] Address [address] [place] [address] Phone Care Team Providers Care Real Estate Accountant Name Role Phone Rhett Portillo MD Primary Care Provider [phone] Encounter Details Date Type Department Care Team (Late st Contact Info) Description 03/26/2015 Documentation [facility] [place] [address] [place] [address] Family Medicine, Physician [address] [place], [place] [phone] Social History Tobacco Use Types Packs/Day Years [...] on filedocumented in this encounter Care Teams Real Estate Accountant Relationship Specialty Start Date End Date Rhett Portillo MD 150 [facility] [place] [address] PCP - General Pediatrics 05/25/19 05/05/23 documented as of this encounter
--- OUTSIDE RECORDS SUMMARY | 2025-02-09 09:00 | XMS_ITS | Encounter Summary ---
Author Organization [facility] Address [address] [place] [address] Phone Care Team Providers Care Crossing Watchman Name Role Phone Rhett Portillo MD Primary Care Provider [phone] Encounter Details Date Type Department Care Team (Late st Contact Info) Description 02/18/2011 [place] [facility] [place] [address] [place] [address] Family Medicine, Physician [address] [place], [place] [phone] Social History Tobacco Use Types Packs/Day Years [...] on filedocumented in this encounter Care Teams Crossing Watchman Relationship Specialty Start Date End Date Rhett Portillo MD 150 [facility] [place] [address] PCP - General Pediatrics 05/25/19 05/05/23 documented as of this encounter
--- OUTSIDE RECORDS SUMMARY | 2025-02-09 09:00 | XMS_ITS | Encounter Summary ---
Author Organization [facility] Address [address] [place] [address] Phone Care Team Providers Care Solution Mixer Name Role Phone Rhett Portillo MD Primary Care Provider [phone] Encounter Details Date Type Department Care Team (Late st Contact Info) Description 02/18/2011 [place] [facility] [place] [address] [place] [address] Family Medicine, Physician [address] [place], [place] [phone] Social History Tobacco Use Types Packs/Day Years [...] on filedocumented in this encounter Care Teams Solution Mixer Relationship Specialty Start Date End Date Rhett Portillo MD 150 [facility] [place] [address] PCP - General Pediatrics 05/25/19 05/05/23 documented as of this encounter
[2025-02-09 13:12] LABS: MANUAL DIFF FLAG NO
[2025-02-09 13:20] LABS: Appearance Urine Clear; Glucose Urine UA Negative (Negative); PH 8.5 (5.0-9.0); Specific Gravity - Urine 1.020 (1.005-1.025)
[2025-02-09 13:30] LABS: Hematocrit 44.1 % (42.0-52.0); Hemoglobin 14.8 g/dl (14.0-18.0); Imm Gran Abs Auto 0.02 X10*3/uL (0.00-0.03); Imm Gran Pct Auto 0.3 % (0.0-0.4); Lymphocytes Absolute Auto 2.0 X10*3/uL (1.2-4.9); Mean Corpuscular HGB Conc 33.6 g/dl (31.0-36.0); Mean Corpuscular Hemoglobin 28.6 pg (27.0-33.0); Mean Corpuscular Volume 85.1 fL (80.0-98.0); NRBC Abs Auto 0.000 X10*3/uL (0.0-0.012); NRBC Pct Auto 0.0 /100WBC (0.0-0.2); Platelet Count 358 X10*3/uL (160-400); Red Blood Count 5.18 X10*6/uL (4.60-5.80); White Blood Count 6.0 X10*3/uL (4.8-10.8)
[2025-02-09 13:38] LABS: Total Hemoglobin (HGBA1C) 3790.6539 umol/L
[2025-02-09 14:25] LABS: Alanine Aminotransferase 31 U/L (0-40); Albumin Level 5.2 g/dL (3.5-5.0); Alkaline Phosphatase 58 U/L (39-117); Anion Gap 12 (12-20); Aspartate Amino Transferase 30 U/L (5-37); Blood Urea Nitrogen 7 mg/dL (9-16); Calcium 10.1 mg/dL (8.4-10.2); Carbon Dioxide 28 mmol/L (22-29); Chloride 107 mmol/L (96-108); Cholesterol 141 mg/dL (<200); Estimated Glomerular Filt Rate > 60; HDL Cholesterol 37 mg/dL (>40); Potassium 4.6 mmol/L (3.3-5.1); Sodium 142 mmol/L (135-145); Total Protein 8.0 g/dL (6.5-8.0); Triglycerides 106 mg/dL (<150)
[2025-02-09 14:34] LABS: Folate 13.2 ng/mL (> or = 4.0); Vitamin B12 475 pg/mL (200-900)
[2025-02-09 15:37] LABS: CT PCR Urine NOT DETECTED (Not Detect.); NG PCR Urine NOT DETECTED (Not Detect.)
[2025-02-12 04:06] LABS: Syphilis Screen Nonreactive (Nonreactive)
[2025-02-12 04:36] LABS: HBS Num1 2.85 mIU/mL (0-7.99); HBsAGNum1 0.36 S/CO (0.00-0.99); HIV Num 1 0.06 S/CO (0.00-0.99); Hepatitis B Surface Antigen Negative (Negative); ~HepC Num1 0.08 S/CO (0.00-0.79); ~Hepatitis B Surface Antibody NONREACTIVE (Nonreactive); ~Hepatitis C Antibody Nonreactive (Nonreactive)
[2025-02-13 17:43] LABS: VITAMIN D (1,25 OH) D3 40 pg/mL; Vit D (1,25-Dihydroxy) Total 40 pg/mL (18-72); Vitamin D (1,25 OH) D2 <8 pg/mL
[2025-02-14 11:23] LABS: Chlamydia Trachomatis IgA <1:16 titer (<1:16)
== END 2025-02-09 08:38 | disposition home or self-care (01) ==
LOC: HO.HKASLDS 08:37
PROVIDERS: Visit Provider Student in an Organized Health Care Education/Training Program
DX: Z11.4 Encounter for screening for human immunodeficiency virus [HIV] (principal); Z13.6 Encounter for screening for cardiovascular disorders; Z13.1 Encounter for screening for diabetes mellitus; Z13.21 Encounter for screening for nutritional disorder; Z20.2 Contact with and (suspected) exposure to infections with a predominantly sexual mode of transmission
CPT/HCPCS: 80053; 80061; 81003; 82607; 82652; 82746; 83036; 85025; 86631; 86632; 86706; 86780; 86803; 87340; 87389; 87491; 87591

== ENCOUNTER 2025-02-22 09:43 | Outpatient (AMB) | payer BC, SELFPAY ==
[2025-02-22 09:45] VITALS: BP 129/67; PULSE 75; RESP 16; TEMP 36.6; O2SAT 96; BMI 27.7
--- NOTE | 2025-02-22 09:45 | MHC.PC.OV ---
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 Low high-density lipoprotein (HDL) cholesterol: - The patient's HDL cholesterol level is slightly below the recommended threshold, measured at 37 mg/dL, while the desired level is above 40 mg/dL. - No other lipid abnormalities were noted, and the patient?s overall cholesterol profile is otherwise normal. Review of Systems 10-point ROS reviewed and negative except as noted in HPI Past Medical History Health Maintenance - Regular follow-up recommended in three months for ongoing health monitoring and to reassess laboratory results. Physical Exam General: Well-appearing, in no acute distress. Vital signs: Within normal limits. HEENT: Normocephalic, atraumatic. PERRLA, EOMI. Conjunctiva clear, sclera anicteric. Oropharynx clear, mucous membranes moist. TMs intact bilaterally. Neck: Supple, no lymphadenopathy, no thyromegaly, no JVD or carotid bruits. Cardiovascular: RRR, normal S1/S2, no murmurs, rubs, or gallops. Peripheral pulses 2+ and symmetric. No edema. Respiratory: Lungs clear to auscultation bilaterally, no wheezes, rales, or rhonchi. Normal effort. Abdomen: Soft, non-tender, non-distended. Normoactive bowel sounds. No hepatosplenomegaly, no masses. MSK: Full range of motion, no joint swelling or deformity. Normal gait. Skin: Warm, dry, intact. No rashes, lesions, or pallor. Neuro: Alert and oriented x3. Cranial nerves II-XII intact. Strength 5/5 throughout. Sensation intact. Reflexes 2+ symmetric. Normal coordination and gait. Psych: Appropriate mood and affect. Normal judgment and insight. Plan 1. Low High-Density Lipoprotein (Hdl) Cholesterol - Plan to monitor HDL cholesterol levels and encourage lifestyle modifications to improve HDL levels, such as increased physical activity and dietary adjustments. - Follow-up visit scheduled in three months to reassess lipid profile and overall health status. Discussion Notes I discussed with the patient that his HDL cholesterol is slightly below the recommended level, but overall, his health metrics are good. We agreed on a follow-up in three months to monitor his cholesterol levels and overall health. Discussed lifestyle changes patient verbalizes understanding and agrees Patient was informed and verbally consented to the use of an ambient scribefor clinic note documentation during this visit. Patient Instructions - Schedule a follow-up appointment in three months. - Engage in regular physical activity to help improve HDL cholesterol levels. - Consider dietary changes to support heart health. Total time spent caring for the patient today was 30 minutes. This includes time spent before the visit reviewing the chart, time spent documenting, and time spent reviewing laboratory results, diagnostic imaging, medications, performing a medically necessary evaluation, counseling on diagnoses, care coordination, ordering appropriate tests, ordering appropriate medications. [facility] Family History Father No problems noted. Mother Thyroid disease Social History Housing: Apartment Alcohol intake: current Alcohol intake frequency: does not drink Patient Tobacco Use Status: Never used Tobacco service: No Current occupational status: employed Cognitive needs: No Hearing needs: No Vision needs: No Questionnaire PHQ-9 Over the last 2 weeks, how often have you been bothered by any of the following problems? 1. Little interest or pleasure in doing things: not at all 2. Feeling down, depressed, or hopeless: not at all 3. Trouble falling or staying asleep, or sleeping too much: not at all 4. Feeling tired or having little energy: not at all 5. Poor appetite or overeating: several days 6. Feeling bad about yourself - or that you are a failure or have let yourself or your family down: not at all 7. Trouble concentrating on things, such as reading the newspaper or watching television: not at all 8. Moving or speaking so slowly that other people could have noticed. Or the opposite - being so fidgety or restless that you have been moving around a lot more than usual: not at all 9. Thoughts that you would be better off or of hurting yourself in some way: not at all Total score: 1 Source: Developed by Drs. Naga Carrillo, Mckayla Kraus, Brent Hernandez and colleagues, with an educational abhi from [employer]. Thrive Questionnaire Date Thrive assessed: 02/07/25 I am a: Patient What is your living situation today?: I have a steady place to live Within the past 12 months, did the food you bought not last and you didn't have the money to get more?: Never true Within the past 12 months, did you worry whether your food would run out before you got money to buy more?: Never true Do you have trouble paying for medicines?: No Do you have trouble getting transportation to medical appointments?: No Do you have trouble paying your heating and electricity bill?: No Do you have trouble taking care of your child, family member or friend?: No Do you have trouble with day-to-day activities such as bathing, preparing meals, shopping, managing finances, etc.?: No Are you currently unemployed and looking for a job?: No Are you interested in more education?: No Please select the resources that you would like help with: None Currently or been in a relationship where the following occur: No concerns reported THRIVE Score: 0 AUDIT C Alcohol Use Questionnaire (AUDIT-C) 1. How often do you have a drink containing alcohol?: Never 3. How often do you have six or more drinks on one occasion?: Never Total Score: 0 LIZZIE-7 AMB Questionnaire LIZZIE-7 Date LIZZIE - 7 assessed: 02/08/25 Feeling nervous, anxious, or on edge: 0 = Not at all Not being able to stop or control worryin = Not at all Worrying too much about different things: 0 = Not at all Trouble relaxin = Not at all Being so restless that it is hard to sit still: 0 = Not at all Becoming easily annoyed or irritable: 0 = Not at all Feeling afraid as if something awful might happen: 0 = Not at all Total LIZZIE-7 score (0-4 normal; 5-9 mild; 10-14 moderate; 15-21 severe): 0 Source: Developed by Drs. Naga Carrillo, Mckayla Kraus, Brent Hernandez and colleagues, with an educational abhi from [employer]. Physical exam (Primary Care) Vital Signs: Last Vital Signs Temp 97.9 F 02/22/25 09:45 Pulse 75 02/22/25 09:45 Resp 16 02/22/25 09:45 BP 129/67 02/22/25 09:45 Pulse Ox 96 02/22/25 09:45 Oxygen Delivery Method Room Air 02/22/25 09:45 BMI result Body Mass Index 27.7 Tobacco/Smoking Status: Tobacco use Status Tobacco use date assessed 02/08/25 02/22/25 09:51 Patient Tobacco Use Status Never used Tobacco 02/22/25 09:51 PHQ-9: PHQ-9 Score PHQ-9: Total score 1 02/22/25 09:51 Thrive Assessment: Date of Thrive Assessment Date Thrive assessed 02/07/25 02/22/25 09:51 Currently or been in a relationship where the following occur: No concerns reported Coding Level of Care Code Est Pt Level 4 (00836) Diagnoses Elevated LDL cholesterol level E78.00 Overweight (BMI 25.0-29.9) E66.3 Assessment & Plan Assessment & Plan (1) Elevated LDL cholesterol level: Code(s): E78.00 - Pure hypercholesterolemia, unspecified (2) Overweight (BMI 25.0-29.9): Code(s): E66.3 - Overweight Plan
== END 2025-02-22 10:02 | disposition home or self-care (01) ==
LOC: HO.HMCFMS 09:44
PROVIDERS: PCP Student in an Organized Health Care Education/Training Program; Visit Provider Student in an Organized Health Care Education/Training Program
DX: E78.00 Pure hypercholesterolemia, unspecified (principal); E66.3 Overweight